=== PATIENT | female | born 1970 | race Caucasian/White ===

== ENCOUNTER 2017-07-31 14:28 | Inpatient (IN) | payer OTHER ==
[2017-07-31 16:36] VITALS: BMI 21.2
--- NOTE | 2017-07-31 17:20 | HP ---
CIWA Score - CIWA Score Nausea/Vomitin-Mild Nausea/No Vomiting Muscle Tremors: 4-Moderate,w/Arms Extend Anxiety: 4-Mod. Anxious/Guarded Agitation: 4-Moderately Restless Paroxysmal Sweats: 1-Minimal Palms Moist Orientation: 0-Oriented Tacttile Disturbances: 0-None Auditory Disturbances: 0-None Visual Disturbances: 0-None Headache: 0-None Present CIWA-Ar Total Score: 14 Admission ROS [facility] - HPI Chief Complaint: WITHDRAWAL SX Allergies/Adverse Reactions: Allergies Allergy/AdvReac Type Severity Reaction Status Date / Time No Known Allergies Allergy Unverified 01/28/15 12:35 History of Present Illness: 47 YEARS OLD FEMALE WITH LONG HISTORY OF ALCOHOL NICOTINE DEPENDENCE, HISTORY OF BILATERAL BREAST CA, SUGICALLY REMOVED, DENIES MENTAL ILLNESS IS ADMITTED TO DETOX ALCOHOL INTOXICATION TREATED AT [facility] RELEASED TO [facility] FOR ALCOHOL DETOX Exam Limitations: No Limitations - Ebola screening Have you traveled outside of the country in the last 21 days: No Have you had contact with anyone from an Ebola affected area: No Have you been sick,other than usual withdrawal symptoms: No Do you have a fever: No - Review of Systems Constitutional: Changes in sleep, Weight Stable EENT: reports: Blurred Vision (EYE GLASSES) Respiratory: reports: No Symptoms reported Cardiac: reports: No Symptoms Reported GI: reports: Nausea, Poor Fluid Intake, Abdominal cramping : reports: No Symptoms Reported Musculoskeletal: reports: No Symptoms Reported Integumentary: reports: No Symptoms Reported Neuro: reports: Tremors Endocrine: reports: No Symptoms Reported Hematology: reports: No Symptoms Reported Psychiatric: reports: Judgement Intact, Mood/Affect Appropiate, Orientated x3 Other Systems: Reviewed and Negative Patient History - Patient Medical History Hx Anemia: No Hx Asthma: No Hx Chronic Obstructive Pulmonary Disease (COPD): No Hx Cancer: No Hx Cardiac Disorders: No Hx Congestive Heart Failure: No Hx Hypertension: No Hx Hypercholesterolemia: No Hx Pacemaker: No HX Cerebrovascular Accident: No Hx Seizures: No Hx Dementia: No Hx Diabetes: No Hx Gastrointestinal Disorders: No Hx Liver Disease: No Hx Genitourinary Disorders: No Hx Sexually Transmitted Disorders: No Hx Renal Disease (ESRD): No Hx Thyroid Disease: No Hx Human Immunodeficiency Virus (HIV): No Hx Hepatitis C: No Hx Depression: No Hx Suicide Attempt: No Hx Bipolar Disorder: No Hx Schizophrenia: No - Patient Surgical History Past Surgical History: Yes Hx Neurologic Surgery: No Hx Cataract Extraction: No Hx Cardiac Surgery: No Hx Lung Surgery: No Hx Breast Surgery: Yes (2014 RIGHT AXILLARY LYMPH NODE REMOVED) Hx Breast Biopsy: No Hx Abdominal Surgery: No Hx Appendectomy: No Hx Cholecystectomy: No Hx Genitourinary Surgery: No Hx Section: No Hx Orthopedic Surgery: No Hx Hysterectomy: No Anesthesia Reaction: No - PPD History Previous Implant?: Yes Documented Results: Negative w/proof Implanted On Prior [facility] Admission?: No PPD to be Administered?: Yes - Reproductive History Patient is a Female of Child Bearing Age (11 -55 yrs old): Yes Last Menstrual Period: 07/31/15 Patient : No - Smoking Cessation Smoking history: Current every day smoker Have you smoked in the past 12 months: Yes Aproximately how many cigarettes per day: 20 Cigars Per Day: 0 Hx Chewing Tobacco Use: No Initiated information on smoking cessation: Yes 'Breaking Loose' booklet given: 07/31/17 - Substance & Tx. History Hx Alcohol Use: Yes Hx Substance Use: No Substance Use Type: Alcohol Hx Substance Use Treatment: Yes (04/2017 [facility]) - Substances Abused Alcohol Route: Oral Frequency: Daily Amount used: PINT WINE Age of first use: 14 Date of Last Use: 07/30/17 Family Disease History - Family Disease History Family Disease History: Heart Disease: Father ([place]), Mother Admission Physical Exam [facility] - Vital Signs Vital Signs: Vital Signs - 24 hr 07/31/17 16:30 Temperature 98.1 F Pulse Rate 102 H Respiratory 20 Rate Blood Pressure 116/75 - Physical General Appearance: Yes: Appropriately Dressed, Mild Distress, Tremorous, Irritable, Sweating, Anxious HEENTM: Yes: Hearing grossly Normal, Normal ENT Inspection, Normocephalic, Normal Voice Respiratory: Yes: Chest Non-Tender, No Respiratory Distress, No Accessory Muscle Use, Hyperresonant (LEFT LOWER) Neck: Yes: Supple, Trachea in good position Breast: Yes: Surgical Scar (BILATERALLY RIGHT AXILLARY) Cardiology: Yes: Regular Rhythm, S1, S2, Tachycardia Abdominal: Yes: Normal Bowel Sounds, Non Tender, Soft Genitourinary: Yes: Within Normal Limits Back: Yes: Normal Inspection Musculoskeletal: Yes: full range of Motion, Gait Steady Extremities: Yes: Normal Inspection, Normal Range of Motion, Non-Tender, Tremors Neurological: Yes: Fully Oriented, Alert, Motor Strength 5/5, Normal Mood/Affect , Normal Response Integumentary: Yes: Warm Lymphatic: Yes: Within Normal Limits - Diagnostic (1) Alcohol dependence with uncomplicated withdrawal Current Visit: Yes Status: Acute (2) Nicotine dependence Current Visit: Yes Status: Acute Qualifiers: Nicotine product type: cigarettes Substance use status: in withdrawal Qualified Code(s): F17.213 - Nicotine dependence, cigarettes, with withdrawal; F17.213 - Nicotine dependence, cigarettes, with withdrawal (3) Carcinoma of both breasts Current Visit: Yes Status: Resolved Qualifiers: Breast location: overlapping sites of breast Estrogen receptor status: unspecified Patient sex: female Qualified Code(s): C50.811 - Malignant neoplasm of overlapping sites of right female breast; C50.811 - Malignant neoplasm of overlapping sites of right female breast; C50.811 - Malignant neoplasm of overlapping sites of right female breast; C50.811 - Malignant neoplasm of overlapping sites of right female breast; C50.812 - Malignant neoplasm of overlapping sites of left female breast; C50.812 - Malignant neoplasm of overlapping sites of left female breast; C50.812 - Malignant neoplasm of overlapping sites of left female breast; C50.812 - Malignant neoplasm of overlapping sites of left female breast Comment: RECONSTRUCTION BILATERALLY 2014 (4) 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
[2017-07-31] MEDS ORDERED: guaiFENesin/D-METHORPHAN HB 10 ML UNIT-DOSE CUPS PO PRN (17:33)
[2017-07-31] MEDS ORDERED: ACETAMINOPHEN 325 MG TABLET (FP) PO PRN (17:33)
[2017-07-31] MEDS ORDERED: MENTHOL/PHENOL 1 EACH UD MM PRN (17:33)
[2017-07-31] MEDS ORDERED: MAG HYDROX/AL HYDROX/SIMETH 30 ML UNIT-DOSE CUP PO PRN (17:33)
[2017-07-31] MEDS ORDERED: MAGNESIUM CITRATE 300 ML BOTTLE PO PRN (17:33)
[2017-07-31] MEDS ORDERED: LOPERAMIDE HCL 2 MG CAPSULE PO PRN (17:33)
[2017-07-31] MEDS ORDERED: MAGNESIUM HYDROX 2400MG/30ML ORAL SUSPENSION 30 ML CUP PO PRN (17:33)
[2017-07-31] MEDS ORDERED: IBUPROFEN 400 MG TABLET (FP) PO PRN (17:33)
[2017-07-31] MEDS ORDERED: chlordiazePOXIDE HCL 25 MG CAPSULE PO ONE (17:33)
[2017-07-31] MEDS ORDERED: diphenhydrAMINE HCL 50 MG CAPSULE PO PRN (17:33)
[2017-07-31] MEDS ORDERED: NICOTINE POLACRILEX 4 MG GUM BC PRN (17:33)
[2017-07-31] MEDS ORDERED: chlordiazePOXIDE HCL 25 MG CAPSULE PO PRN (17:33)
[2017-07-31] MEDS ORDERED: P-EPHED 60MG/TRIPROLIDI 2.5MG TABLET PO PRN (17:33)
[2017-07-31] MEDS: THIAMINE HCL 100 MG TABLET (FP) PO SCH (22:29)
[2017-07-31] MEDS: chlordiazePOXIDE HCL 25 MG CAPSULE PO SCH (22:30)
[2017-07-31] MEDS: hydrOXYzine PAMOATE 50 MG CAPSULE (FP) PO PRN (22:31)
[2017-07-31] MEDS: GABAPENTIN 400 MG CAPSULE (FP) PO SCH (23:10)
[2017-07-31 23:26] LABS: URINE APPEARANCE SLCLOUDY; URINE BILIRUBIN NEGATIVE (NEGATIVE); URINE BLOOD NEGATIVE (NEGATIVE); URINE COLOR YELLOW; URINE GLUCOSE (UA) NEGATIVE (NEGATIVE); URINE KETONE NEGATIVE (NEGATIVE); URINE NITRITE NEGATIVE (NEGATIVE); URINE PROTEIN NEGATIVE (NEGATIVE)
[2017-08-01] MEDS: chlordiazePOXIDE HCL 25 MG CAPSULE PO SCH ×4 (05:15→22:13)
[2017-08-01] MEDS: GABAPENTIN 400 MG CAPSULE (FP) PO SCH ×3 (05:18→22:13)
--- NOTE | 2017-08-01 10:27 | PN ---
S CIWA - CIWA Score Nausea/Vomitin Muscle Tremors: 3 Anxiety: 3 Agitation: 2 Paroxysmal Sweats: 1-Minimal Palms Moist Orientation: 0-Oriented Tacttile Disturbances: 1-Very Mild Itch/Numbness Auditory Disturbances: 1-Very Mild Visual Disturbances: 1-Very Mild Sensitivity Headache: 2-Mild CIWA-Ar Total Score: 17 BHS Progress Note (SOAP) Subjective: alert,irritable,anxious,interrupted sleep,tremor,saab in the body Objective: 08/01/17 10:25 Vital Signs Temperature 96.9 F L 08/01/17 09:52 Pulse Rate 94 H 08/01/17 09:52 Respiratory Rate 18 08/01/17 09:52 Blood Pressure 107/80 08/01/17 09:52 O2 Sat by Pulse Oximetry (%) ekg nsr Laboratory Last Values Urine Color Yellow 07/31/17 23:10 Urine Appearance Slcloudy 07/31/17 23:10 Urine pH 7.0 (5.0-8.0) 07/31/17 23:10 Urine Protein Negative (NEGATIVE) 07/31/17 23:10 Urine Glucose (UA) Negative (NEGATIVE) 07/31/17 23:10 Urine Ketones Negative (NEGATIVE) 07/31/17 23:10 Urine Blood Negative (NEGATIVE) 07/31/17 23:10 Urine Nitrite Negative (NEGATIVE) 07/31/17 23:10 Urine Bilirubin Negative (NEGATIVE) 07/31/17 23:10 Urine Urobilinogen 2.0 mg/dL (0.2-1.0) H 07/31/17 23:10 labs pending Assessment: 08/01/17 10:26 withdrawal symptom Plan: continue detox
[2017-08-01] MEDS: NICOTINE 21 MG/24 HOURS TOPICAL PATCH TD SCH (10:36)
[2017-08-01] MEDS: PRENATAL VITAMINS W/ FOLIC ACID TABLET (FP) PO SCH (10:36)
[2017-08-01] MEDS: hydrOXYzine PAMOATE 50 MG CAPSULE (FP) PO PRN ×3 (10:42→19:44)
[2017-08-01 10:53] LABS: MCH 31.8 pg (25.7-33.7); MCHC 33.8 g/dl (32.0-36.0); MEAN CELL VOLUME 93.9 fl (80-96); MEAN PLT VOLUME 8.3 fl (7.5-11.1); PLATELET COUNT 138 K/MM3 (134-434); RDW 12.7 % (11.6-15.6); WHITE BLOOD COUNT 4.6 K/mm3 (4.0-10.0)
[2017-08-01 11:04] LABS: ALBUMIN 3.4 g/dl (3.4-5.0); ALK PHOS 46 U/L (45-117); ANION GAP 6 (8-16); BILIRUBIN,TOTAL 1.1 mg/dL (0.2-1.0); CALCIUM 8.9 mg/dL (8.5-10.1); CO2 25 mmol/L (21-32); CREATININE 0.6 mg/dL (0.55-1.02); GLUCOSE,RANDOM 86 mg/dL (74-106); SGOT/AST 27 U/L (15-37); SGPT/ALT 19 U/L (12-78); TOT PROT 5.8 g/dl (6.4-8.2)
[2017-08-01 11:29] LABS: URINE LEUK ESTERASE Negative (NEGATIVE)
--- NOTE | 2017-08-01 13:07 | EKG ---
Test Reason : Blood Pressure : / mmHG Vent. Rate : 077 BPM Atrial Rate : 077 BPM P-R Int : 142 ms QRS Dur : 088 ms QT Int : 408 ms P-R-T Axes : 063 060 052 degrees QTc Int : 461 ms NORMAL SINUS RHYTHM NORMAL ECG NO PREVIOUS ECGS AVAILABLE Confirmed by BRICE CHATMAN MD ([id number]) on 08/01/2017 1:06:43 PM Referred By: Confirmed By:BRICE CHATMAN MD
[2017-08-01] MEDS: TAMOXIFEN CITRATE 10 MG TABLET PO SCH (15:06)
[2017-08-01] MEDS: THIAMINE HCL 100 MG TABLET (FP) PO SCH (22:13)
[2017-08-02] MEDS: GABAPENTIN 400 MG CAPSULE (FP) PO SCH ×3 (05:22→22:28)
[2017-08-02] MEDS: chlordiazePOXIDE HCL 25 MG CAPSULE PO SCH ×3 (05:22→17:32)
[2017-08-02] MEDS: hydrOXYzine PAMOATE 50 MG CAPSULE (FP) PO PRN ×5 (05:25→22:29)
--- NOTE | 2017-08-02 09:34 | PN ---
S CIWA - CIWA Score Nausea/Vomitin Muscle Tremors: 3 Anxiety: 3 Agitation: 2 Paroxysmal Sweats: 1-Minimal Palms Moist Orientation: 0-Oriented Tacttile Disturbances: 1-Very Mild Itch/Numbness Auditory Disturbances: 1-Very Mild Visual Disturbances: 0-None Headache: 2-Mild CIWA-Ar Total Score: 16 BHS Progress Note (SOAP) Subjective: alert,irritable,anxious,interrupted sleep,tremor Objective: 08/02/17 09:33 Vital Signs Temperature 98 F 08/02/17 06:30 Pulse Rate 74 08/02/17 06:30 Respiratory Rate 18 08/02/17 06:30 Blood Pressure 94/57 08/02/17 06:30 O2 Sat by Pulse Oximetry (%) Laboratory Last Values WBC 4.6 K/mm3 (4.0-10.0) 08/01/17 07:00 RBC 3.91 M/mm3 (3.60-5.2) 08/01/17 07:00 Hgb 12.4 GM/dL (10.7-15.3) 08/01/17 07:00 Hct 36.7 % (32.4-45.2) 08/01/17 07:00 MCV 93.9 fl (80-96) 08/01/17 07:00 MCH 31.8 pg (25.7-33.7) 08/01/17 07:00 MCHC 33.8 g/dl (32.0-36.0) 08/01/17 07:00 RDW 12.7 % (11.6-15.6) 08/01/17 07:00 Plt Count 138 K/MM3 (134-434) 08/01/17 07:00 MPV 8.3 fl (7.5-11.1) 08/01/17 07:00 Sodium 141 mmol/L (136-145) 08/01/17 07:00 Potassium 4.0 mmol/L (3.5-5.1) 08/01/17 07:00 Chloride 110 mmol/L (98-107) H 08/01/17 07:00 Carbon Dioxide 25 mmol/L (21-32) 08/01/17 07:00 Anion Gap 6 (8-16) L 08/01/17 07:00 BUN 5 mg/dL (7-18) L 08/01/17 07:00 Creatinine 0.6 mg/dL (0.55-1.02) 08/01/17 07:00 Creat Clearance w eGFR > 60 (>60) 08/01/17 07:00 Random Glucose 86 mg/dL (74-106) 08/01/17 07:00 Calcium 8.9 mg/dL (8.5-10.1) 08/01/17 07:00 Total Bilirubin 1.1 mg/dL (0.2-1.0) H 08/01/17 07:00 AST 27 U/L (15-37) 08/01/17 07:00 ALT 19 U/L (12-78) 08/01/17 07:00 Alkaline Phosphatase 46 U/L (45-117) 08/01/17 07:00 Total Protein 5.8 g/dl (6.4-8.2) L 08/01/17 07:00 Albumin 3.4 g/dl (3.4-5.0) 08/01/17 07:00 Urine Color Yellow 07/31/17 23:10 Urine Appearance Slcloudy 07/31/17 23:10 Urine pH 7.0 (5.0-8.0) 07/31/17 23:10 Ur Specific [place] 1.015 (1.005-1.025) 07/31/17 23:10 Urine Protein Negative (NEGATIVE) 07/31/17 23:10 Urine Glucose (UA) Negative (NEGATIVE) 07/31/17 23:10 Urine Ketones Negative (NEGATIVE) 07/31/17 23:10 Urine Blood Negative (NEGATIVE) 07/31/17 23:10 Urine Nitrite Negative (NEGATIVE) 07/31/17 23:10 Urine Bilirubin Negative (NEGATIVE) 07/31/17 23:10 Urine Urobilinogen 2.0 mg/dL (0.2-1.0) H 07/31/17 23:10 Ur Leukocyte Esterase Negative (NEGATIVE) 07/31/17 23:10 RPR Titer Nonreactive (NONREACTIVE) 08/01/17 07:00 Assessment: 08/02/17 09:34 withdrawal symptom Plan: continue detox
[2017-08-02] MEDS: PRENATAL VITAMINS W/ FOLIC ACID TABLET (FP) PO SCH (10:34)
[2017-08-02] MEDS: TAMOXIFEN CITRATE 10 MG TABLET PO SCH (10:34)
[2017-08-02] MEDS: NICOTINE 21 MG/24 HOURS TOPICAL PATCH TD SCH (10:35)
--- NOTE | 2017-08-02 18:50 | PN ---
BHS Progress Note Note: received pharmacist called that the patient was taking lexapro at home psychiatric consultation continue detox
[2017-08-02] MEDS: chlordiazePOXIDE 5 MG CAPSULE PO SCH (22:27)
[2017-08-02] MEDS: THIAMINE HCL 100 MG TABLET (FP) PO SCH (22:28)
[2017-08-03] MEDS: chlordiazePOXIDE 5 MG CAPSULE PO SCH ×3 (05:34→17:36)
[2017-08-03] MEDS: GABAPENTIN 400 MG CAPSULE (FP) PO SCH ×3 (05:35→22:30)
[2017-08-03] MEDS: hydrOXYzine PAMOATE 50 MG CAPSULE (FP) PO PRN ×5 (05:37→23:19)
[2017-08-03] MEDS: TAMOXIFEN CITRATE 10 MG TABLET PO SCH (10:56)
[2017-08-03] MEDS: NICOTINE 21 MG/24 HOURS TOPICAL PATCH TD SCH (10:56)
[2017-08-03] MEDS: PRENATAL VITAMINS W/ FOLIC ACID TABLET (FP) PO SCH (10:56)
--- NOTE | 2017-08-03 11:44 | PN ---
BHS Progress Note (SOAP) Subjective: anxious, poor sleep, irritable Objective: 08/03/17 11:43 Vital Signs - 24 hr 08/02/17 08/02/17 08/02/17 14:05 18:06 23:47 Temperature 99.4 F 98.1 F 98.4 F Pulse Rate 113 H 92 H 89 Respiratory 18 20 18 Rate Blood Pressure 110/60 104/65 114/80 08/03/17 08/03/17 08/03/17 00:30 03:30 06:31 Temperature 97.6 F Pulse Rate 80 Respiratory 18 18 16 Rate Blood Pressure 91/63 08/03/17 11:08 Temperature 96.4 F L Pulse Rate 110 H Respiratory 16 Rate Blood Pressure 99/70 Laboratory Tests 07/31/17 08/01/17 08/01/17 23:10 07:00 07:00 WBC 4.6 RBC 3.91 Hgb 12.4 Hct 36.7 MCV 93.9 MCH 31.8 MCHC 33.8 RDW 12.7 Plt Count 138 MPV 8.3 Sodium 141 Potassium 4.0 Chloride 110 H Carbon Dioxide 25 Anion Gap 6 L BUN 5 L Creatinine 0.6 Creat Clearance w eGFR > 60 Random Glucose 86 Calcium 8.9 Total Bilirubin 1.1 H AST 27 ALT 19 Alkaline Phosphatase 46 Total Protein 5.8 L Albumin 3.4 Urine Color Yellow Urine Appearance Slcloudy Urine pH 7.0 Ur Specific [place] 1.015 Urine Protein Negative Urine Glucose (UA) Negative Urine Ketones Negative Urine Blood Negative Urine Nitrite Negative Urine Bilirubin Negative Urine Urobilinogen 2.0 H Ur Leukocyte Esterase Negative RPR Titer 08/01/17 07:00 WBC RBC Hgb Hct MCV MCH MCHC RDW Plt Count MPV Sodium Potassium Chloride Carbon Dioxide Anion Gap BUN Creatinine Creat Clearance w eGFR Random Glucose Calcium Total Bilirubin AST ALT Alkaline Phosphatase Total Protein Albumin Urine Color Urine Appearance Urine pH Ur Specific [place] Urine Protein Urine Glucose (UA) Urine Ketones Urine Blood Urine Nitrite Urine Bilirubin Urine Urobilinogen Ur Leukocyte Esterase RPR Titer Nonreactive Assessment: 08/03/17 11:44 withdrawal Plan: cont detox protocol
--- NOTE | 2017-08-03 14:20 | CONSULT ---
[facility] Psychiatric Consult - Data Date of interview: 08/03/17 Admission source: [facility] Identifying data: Readmission to [facility] for this 47 y/o female seeking detox treatment on for alcohol dependence.Patient is single without children,domiciled and self-employed. Substance Abuse History: Confirmed by the patient in this interview. Smoking history: Current every day smoker. Have you smoked in the past 12 months: Yes. Aproximately how many cigarettes per day: 20. Cigars Per Day: 0. Hx Chewing Tobacco Use: No. Initiated information on smoking cessation: Yes. 'Breaking Loose' booklet given: 07/31/17. - Substance & Tx. History. Hx Alcohol Use: Yes. Hx Substance Use: No. Substance Use Type: Alcohol. Hx Substance Use Treatment: Yes (04/2017 [facility]). - Substances Abused. Alcohol. Route: Oral. Frequency: Daily. Amount used: PINT WINE. Age of first use: 14. Date of Last Use: 07/30/17 Medical History: Remarkable for a history of bilateral mastectomy (breast cancer ). Psychiatric History: No history of psychiatric hospitalizations.Diagnosed with MDD and Anxiety Disorder.Ms Chisholm sees a private psychiatrist in the community.Managed with lexapro 10 mg/day.Patient endorses adherence to medications.No reported history of suicide attempts. Physical/Sexual Abuse/Trauma History: No history of abuse.Stressor : breast cancer survivor. Additional Comment: Urine Drug Screen Results: BZO-Benzodiazepines.Noted. Mental Status Exam - Mental Status Exam Alert and Oriented to: Time, Place, Person Cognitive Function: Good Patient Appearance: Well Groomed Mood: Hopeful, Euthymic Affect: Appropriate, Normal Range Patient Behavior: Appropriate (well-mannered), Cooperative Speech Pattern: Clear, Appropriate (articulate historian) Voice Loudness: Normal Thought Process: Intact, Goal Oriented Thought Disorder: Not Present Hallucinations: Denies Suicidal Ideation: Denies Homicidal Ideation: Denies Insight/Judgement: Fair Sleep: Well Appetite: Good Muscle strength/Tone: Normal Gait/Station: Normal Psychiatric Findings - Problem List ([place] 1, 2,3) (1) Alcohol dependence with uncomplicated withdrawal Current Visit: Yes Status: Acute (2) Nicotine dependence Current Visit: Yes Status: Acute Qualifiers: Nicotine product type: cigarettes Substance use status: in withdrawal Qualified Code(s): F17.213 - Nicotine dependence, cigarettes, with withdrawal; F17.213 - Nicotine dependence, cigarettes, with withdrawal (3) Alcohol-induced mood disorder Current Visit: Yes Status: Suspected (4) Depressive disorder Current Visit: Yes Status: Chronic Comment: History.On medication. 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
[2017-08-03] MEDS ORDERED: ESCITALOPRAM OXALATE 10 MG TABLET (FP) PO SCH (14:30)
[2017-08-03] MEDS: THIAMINE HCL 100 MG TABLET (FP) PO SCH (22:30)
[2017-08-03] MEDS: chlordiazePOXIDE HCL 10 MG CAPSULE PO SCH (22:30)
[2017-08-04] MEDS: GABAPENTIN 400 MG CAPSULE (FP) PO SCH (06:35)
[2017-08-04] MEDS: chlordiazePOXIDE HCL 10 MG CAPSULE PO SCH (06:36)
[2017-08-04] MEDS: hydrOXYzine PAMOATE 50 MG CAPSULE (FP) PO PRN (06:41)
[2017-08-04 06:52] VITALS: BP 96/65; PULSE 74; TEMP 97.7
--- NOTE | 2017-08-04 09:49 | DS ---
[facility] Detox Discharge Summary Admission Date: 07/31/17 Discharge Date: 08/04/17 - History Present History: Alcohol Dependence Pertinent Past History: Bilateral Breast Cancer - Physical Exam Results Vital Signs: Vital Signs Temperature 97.7 F 08/04/17 06:00 Pulse Rate 74 08/04/17 06:00 Respiratory Rate 16 08/04/17 06:00 Blood Pressure 96/65 08/04/17 06:00 O2 Sat by Pulse Oximetry (%) Pertinent Admission Physical Exam Findings: Withdrawal sx. Laboratory Last Values WBC 4.6 K/mm3 (4.0-10.0) 08/01/17 07:00 RBC 3.91 M/mm3 (3.60-5.2) 08/01/17 07:00 Hgb 12.4 GM/dL (10.7-15.3) 08/01/17 07:00 Hct 36.7 % (32.4-45.2) 08/01/17 07:00 MCV 93.9 fl (80-96) 08/01/17 07:00 MCH 31.8 pg (25.7-33.7) 08/01/17 07:00 MCHC 33.8 g/dl (32.0-36.0) 08/01/17 07:00 RDW 12.7 % (11.6-15.6) 08/01/17 07:00 Plt Count 138 K/MM3 (134-434) 08/01/17 07:00 MPV 8.3 fl (7.5-11.1) 08/01/17 07:00 Sodium 141 mmol/L (136-145) 08/01/17 07:00 Potassium 4.0 mmol/L (3.5-5.1) 08/01/17 07:00 Chloride 110 mmol/L (98-107) H 08/01/17 07:00 Carbon Dioxide 25 mmol/L (21-32) 08/01/17 07:00 Anion Gap 6 (8-16) L 08/01/17 07:00 BUN 5 mg/dL (7-18) L 08/01/17 07:00 Creatinine 0.6 mg/dL (0.55-1.02) 08/01/17 07:00 Creat Clearance w eGFR > 60 (>60) 08/01/17 07:00 Random Glucose 86 mg/dL (74-106) 08/01/17 07:00 Calcium 8.9 mg/dL (8.5-10.1) 08/01/17 07:00 Total Bilirubin 1.1 mg/dL (0.2-1.0) H 08/01/17 07:00 AST 27 U/L (15-37) 08/01/17 07:00 ALT 19 U/L (12-78) 08/01/17 07:00 Alkaline Phosphatase 46 U/L (45-117) 08/01/17 07:00 Total Protein 5.8 g/dl (6.4-8.2) L 08/01/17 07:00 Albumin 3.4 g/dl (3.4-5.0) 08/01/17 07:00 Urine Color Yellow 07/31/17 23:10 Urine Appearance Slcloudy 07/31/17 23:10 Urine pH 7.0 (5.0-8.0) 07/31/17 23:10 Ur Specific [place] 1.015 (1.005-1.025) 07/31/17 23:10 Urine Protein Negative (NEGATIVE) 07/31/17 23:10 Urine Glucose (UA) Negative (NEGATIVE) 07/31/17 23:10 Urine Ketones Negative (NEGATIVE) 07/31/17 23:10 Urine Blood Negative (NEGATIVE) 07/31/17 23:10 Urine Nitrite Negative (NEGATIVE) 07/31/17 23:10 Urine Bilirubin Negative (NEGATIVE) 07/31/17 23:10 Urine Urobilinogen 2.0 mg/dL (0.2-1.0) H 07/31/17 23:10 Ur Leukocyte Esterase Negative (NEGATIVE) 07/31/17 23:10 RPR Titer Nonreactive (NONREACTIVE) 08/01/17 07:00 labs noted - Treatment Hospital Course: Detox Protocol Followed, Detoxed Safely, Responded well, Discharged Condition Good, Rehab Referral Accepted Patient has Accepted a Rehab Referral to: [facility] - Medication Discharge Medications: Ambulatory Orders Acamprosate Calcium [Campral -] 333 mg PO TID 07/31/17 Escitalopram Oxalate [Lexapro -] 10 mg PO DAILY 07/31/17 Gabapentin [Neurontin -] 300 mg PO Q8H 07/31/17 Hydroxyzine Pamoate [Vistaril -] 25 mg PO BID PRN 07/31/17 Tamoxifen Citrate 10 mg PO DAILY 07/31/17 - Diagnosis (1) Alcohol dependence with uncomplicated withdrawal Current Visit: Yes Status: Acute (2) Nicotine dependence Current Visit: Yes Status: Acute Qualifiers: Nicotine product type: cigarettes Substance use status: in withdrawal Qualified Code(s): F17.213 - Nicotine dependence, cigarettes, with withdrawal; F17.213 - Nicotine dependence, cigarettes, with withdrawal (3) Depressive disorder Current Visit: Yes Status: Chronic (4) Alcohol-induced mood disorder Current Visit: Yes Status: Suspected (5) Carcinoma of both breasts Current Visit: Yes Status: Resolved Qualifiers: Breast location: overlapping sites of breast Estrogen receptor status: unspecified Patient sex: female Qualified Code(s): C50.811 - Malignant neoplasm of overlapping sites of right female breast; C50.811 - Malignant neoplasm of overlapping sites of right female breast; C50.811 - Malignant neoplasm of overlapping sites of right female breast; C50.811 - Malignant neoplasm of overlapping sites of right female breast; C50.812 - Malignant neoplasm of overlapping sites of left female breast; C50.812 - Malignant neoplasm of overlapping sites of left female breast; C50.812 - Malignant neoplasm of overlapping sites of left female breast; C50.812 - Malignant neoplasm of overlapping sites of left female breast; Z17.0 - Estrogen receptor positive status [ER+]; Z17.0 - Estrogen receptor positive status [ER+] - AMA Did Patient Leave Against Medical Advice: No
== END 2017-08-04 09:25 | disposition home or self-care (01) | DRG 897 ==
LOC: YASAS 14:28 → Y6N 20:04
PROVIDERS: ADMIT Internal Medicine; ATTEND Internal Medicine
PROC: HZ2ZZZZ Detoxification Services for Substance Abuse Treatment (ICD-10-PCS; principal; 2017-07-31)
DX: F10.24 Alcohol dependence with alcohol-induced mood disorder (principal); F17.213 Nicotine dependence, cigarettes, with withdrawal; F32.9 Major depressive disorder, single episode, unspecified; R00.0 Tachycardia, unspecified; Z85.3 Personal history of malignant neoplasm of breast; Z85.858 Personal history of malignant neoplasm of other endocrine glands; Z17.0 Estrogen receptor positive status [ER+]; Z90.13 Acquired absence of bilateral breasts and nipples
CPT/HCPCS: 36415; 80053; 81003; 85027; 86593; 93005; 93010

== ENCOUNTER 2019-06-15 23:47 | Inpatient (IN) | payer OTHER ==
--- NOTE | 2019-06-16 00:25 | HP ---
CIWA Score Nausea/Vomitin Muscle Tremors: 4-Moderate,w/Arms Extend Anxiety: 4-Mod. Anxious/Guarded Agitation: 4-Moderately Restless Paroxysmal Sweats: 3 Orientation: 0-Oriented Tacttile Disturbances: 0-None Auditory Disturbances: 0-None Visual Disturbances: 0-None Headache: 3-Moderate CIWA-Ar Total Score: 21 - Admission Criteria OASAS Guidelines: Admission for Medically Managed Detox: Requires at least one of the followin. CIWA greater than 12 2. Seizures within the past 24 hours 3. Delirium tremens within the past 24 hours 4. Hallucinations within the past 24 hours 5. Acute intervention needed for co occurring medical disorder 6. Acute intervention needed for co occurring psychiatric disorder 7. Severe withdrawal that cannot be handled at a lower level of care (continued vomiting, continued diarrhea, abnormal vital signs) requiring intravenous medication and/or fluids 8. Patient presents the following: CIWA greater than 12 Admission Criteria Met: Admission criteria met Admission ROS S - [facility] Chief Complaint: c/o withdrawal sx's Allergies/Adverse Reactions: Allergies Allergy/AdvReac Type Severity Reaction Status Date / Time adhesive tape Allergy Itching Verified 06/16/19 00:05 No Known Drug Allergies Allergy Verified 06/16/19 00:05 History of Present Illness: 49 y.o. female with alcoholism here for detox. client is self referred after presenting at [facility] for stabilization due to withdrawal sx's. she reports she was given librium and then dc. She states she has been drinking alcohol since dc and is seeking detox as she cant stop drinking. she reports that she was clean for the past 5 months before relapsing 5 day ago. 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 Denies hx/o seizures, + blackouts most recent 2 days ago. Denies dt's, si/hi, avh. domiciled, employed, denies legals. Exam Limitations: Intoxication (but is a/ox 3) - Ebola screening Have you traveled outside of the country in the last 21 days: No (N) Have you had contact with anyone from an Ebola affected area: No Do you have a fever: No - Review of Systems Constitutional: Chills, Loss of Appetite, Night Sweats, Changes in sleep EENT: reports: No Symptoms Reported Respiratory: reports: No Symptoms reported Cardiac: reports: Palpitations : reports: No Symptoms Reported Musculoskeletal: reports: Joint Stiffness (chronic) Integumentary: reports: Flushing Neuro: reports: Headache, Tremors (r/t withdrawal) Endocrine: reports: No Symptoms Reported Hematology: reports: No Symptoms Reported Psychiatric: reports: Orientated x3, Anxious, Depressed (denies si) Other Systems: Reviewed and Negative Patient History - Patient Medical History Hx Anemia: No Hx Asthma: No Hx Chronic Obstructive Pulmonary Disease (COPD): No Hx Cancer: Yes (of both breast with double mastectomy with r arm lymph node removal) Hx Cardiac Disorders: No Hx Congestive Heart Failure: No Hx Hypertension: No Hx Hypercholesterolemia: No Hx Pacemaker: No HX Cerebrovascular Accident: No Hx Seizures: No Hx Dementia: No Hx Diabetes: No Hx Gastrointestinal Disorders: No Hx Liver Disease: No Hx Genitourinary Disorders: No Hx Sexually Transmitted Disorders: No Hx Renal Disease (ESRD): No Hx Thyroid Disease: No Hx Human Immunodeficiency Virus (HIV): No Hx Hepatitis C: No Hx Depression: Yes (no med,did not want to see psychiatrist) Hx Suicide Attempt: No Hx Bipolar Disorder: No Hx Schizophrenia: No Other Medical History: denies - Patient Surgical History Past Surgical History: Yes Hx Neurologic Surgery: No Hx Cataract Extraction: No Hx Cardiac Surgery: No Hx Lung Surgery: No Hx Breast Surgery: Yes (2014 RIGHT AXILLARY LYMPH NODE REMOVED) Hx Breast Biopsy: No Hx Abdominal Surgery: No Hx Appendectomy: No Hx Cholecystectomy: No Hx Genitourinary Surgery: No Hx Section: No Hx Orthopedic Surgery: No Hx Hysterectomy: No Other Surgical History: double mastectomy in 2014 Anesthesia Reaction: No - PPD History Previous Implant?: Yes Documented Results: Negative w/proof Implanted On Prior [facility] Admission?: Yes Date: 08/02/17 Results: 0 mm PPD to be Administered?: Yes - Reproductive History Patient is a Female of Child Bearing Age (11 -55 yrs old): Yes Last Menstrual Period: 04/06/18 LMP comment: menapause Patient : No (neg [facility] - Smoking Cessation Smoking history: Current every day smoker Have you smoked in the past 12 months: Yes Aproximately how many cigarettes per day: 20 Cigars Per Day: 0 Hx Chewing Tobacco Use: No Initiated information on smoking cessation: Yes 'Breaking Loose' booklet given: 06/16/19 - Substance & Tx. History Hx Alcohol Use: Yes Hx Substance Use: Yes Substance Use Type: Alcohol Hx Substance Use Treatment: Yes ([facility]) - Substances abused Alcohol Substance route: Oral Frequency: Daily Amount used: 2 BOTTLES OF RED WINE Age of first use: 13 Date of last use: 06/15/19 Family Disease History - Family Disease History Family Disease History: Heart Disease: Father ([facility]), Mother Admission Physical Exam [facility] - Vital Signs Vital Signs: Vital Signs - 24 hr 06/15/19 23:55 Temperature 98.6 F Pulse Rate 111 H Respiratory 18 Rate Blood Pressure 123/91 - Physical General Appearance: Yes: Moderate Distress, Alcohol on Breath, Intoxicated ( clinically stable), Tremorous (felt), Anxious HEENTM: Yes: EOMI, Normocephalic, Normal Voice, ALBERTO, Pharynx Normal, Other ( dry mucucs memebranes discolored teeth) Respiratory: Yes: Chest Non-Tender, Lungs Clear, Normal Breath Sounds, No Respiratory Distress, No Accessory Muscle Use Neck: Yes: No masses,lesions,Nodules, Supple, Trachea in good position Breast: Yes: Surgical Scar Cardiology: Yes: Regular Rhythm, S1, S2, Tachycardia Abdominal: Yes: Non Tender, Soft, Increased Bowel Sounds Genitourinary: Yes: Within Normal Limits Back: Yes: Normal Inspection Musculoskeletal: Yes: full range of Motion, Gait Steady Extremities: Yes: Normal Capillary Refill, Normal Range of Motion, Non-Tender, Tremors (felt) Neurological: Yes: Fully Oriented, Alert, Motor Strength 5/5, Depressed Affect ( denies si/hi) Integumentary: Yes: Dry, Warm, Other (flushed face) Lymphatic: Yes: Within Normal Limits - Diagnostic (1) Alcohol dependence with uncomplicated withdrawal Status: Acute (2) Nicotine dependence Status: Chronic Qualifiers: Nicotine product type: cigarettes Substance use status: uncomplicated Qualified Code(s): F17.210 - Nicotine dependence, cigarettes, uncomplicated (3) Depressive disorder Status: Chronic (4) Alcohol-induced mood disorder Status: Suspected (5) S/P bilateral mastectomy Status: Chronic (6) At risk for dehydration due to poor fluid intake Status: Acute Cleared for Admission [facility] - Detox or Rehab [facility] Level of Care: Medically Managed Detox Regimen/Protocol: Librium Claeared for Rehab Admission: No
[2019-06-16] MEDS ORDERED: chlordiazePOXIDE HCL 25 MG CAPSULE PO PRN (00:31)
[2019-06-16] MEDS ORDERED: IBUPROFEN 400 MG TABLET (FP) PO PRN (00:31)
[2019-06-16] MEDS ORDERED: MAGNESIUM HYDROX 2400MG/30ML ORAL SUSPENSION 30 ML CUP PO PRN (00:31)
[2019-06-16] MEDS ORDERED: MENTHOL/PHENOL 1 EACH UD MM PRN (00:31)
[2019-06-16] MEDS ORDERED: P-EPHED 60MG/TRIPROLIDI 2.5MG TABLET PO PRN (00:31)
[2019-06-16] MEDS ORDERED: MAGNESIUM CITRATE 300 ML BOTTLE PO PRN (00:31)
[2019-06-16] MEDS ORDERED: ACETAMINOPHEN 325 MG TABLET (FP) PO PRN ×2 (00:31)
[2019-06-16] MEDS ORDERED: MAG HYDROX/AL HYDROX/SIMETH 30 ML UNIT-DOSE CUP PO PRN (00:31)
[2019-06-16] MEDS ORDERED: hydrOXYzine PAMOATE 25 MG CAPSULE (FP) PO PRN (00:31)
[2019-06-16] MEDS ORDERED: chlordiazePOXIDE HCL 25 MG CAPSULE PO ONE (00:31)
[2019-06-16] MEDS ORDERED: BISMUTH SUBSALICYLATE 524 MG/30 ML UD PO PRN (00:31)
[2019-06-16] MEDS ORDERED: DICYCLOMINE HCL 10 MG CAPSULE PO PRN (00:31)
[2019-06-16] MEDS ORDERED: NICOTINE POLACRILEX 2 MG GUM BUC PRN (00:31)
[2019-06-16] MEDS ORDERED: METHOCARBAMOL 500 MG TABLET PO PRN (00:31)
[2019-06-16] MEDS ORDERED: guaiFENesin 200 MG/10 ML 10 ML UNIT-DOSE CUPS PO PRN (00:31)
[2019-06-16] MEDS ORDERED: ONDANSETRON *ODT* 4 MG TABLET SL PRN (00:31)
[2019-06-16] MEDS: MELATONIN 5 MG TABLETS PO PRN ×2 (01:09→22:01)
[2019-06-16] MEDS: chlordiazePOXIDE HCL 25 MG CAPSULE PO SCH ×4 (05:26→22:01)
[2019-06-16] MEDS: PRENATAL VITAMINS W/ FOLIC ACID TABLET (FP) PO SCH (10:00)
[2019-06-16] MEDS: NICOTINE 21 MG/24 HOURS TOPICAL PATCH TD SCH (10:02)
[2019-06-16 10:31] LABS: PH,URINE 6.5 (5.0-8.0); URINE APPEARANCE CLEAR; URINE BILIRUBIN NEGATIVE (NEGATIVE); URINE COLOR YELLOW; URINE GLUCOSE (UA) NEGATIVE (NEGATIVE); URINE KETONE NEGATIVE (NEGATIVE); URINE LEUK ESTERASE NEGATIVE (NEGATIVE); URINE NITRITE NEGATIVE (NEGATIVE); URINE PROTEIN NEGATIVE (NEGATIVE); URINE UROBILINOGEN 0.2 mg/dL (0.2-1.0)
[2019-06-16] MEDS: TAMOXIFEN CITRATE 10 MG TABLET PO SCH (11:38)
--- NOTE | 2019-06-16 12:48 | EKG ---
Test Reason : Blood Pressure : / mmHG Vent. Rate : 094 BPM Atrial Rate : 094 BPM P-R Int : 128 ms QRS Dur : 082 ms QT Int : 378 ms P-R-T Axes : 000 105 068 degrees QTc Int : 472 ms NORMAL SINUS RHYTHM LATERAL INFARCT , AGE UNDETERMINED ABNORMAL ECG WHEN COMPARED WITH ECG OF 09-APR-2018 15:44, LATERAL INFARCT IS NOW PRESENT Confirmed by Babatunde Lamar MD ([id number]) on 06/16/2019 12:48:39 PM Referred By: ISABELLE Confirmed By:Babatunde Lamar MD
--- NOTE | 2019-06-16 13:18 | CONSULT ---
[facility] Psychiatric Consult - Data Date of interview: 06/16/19 Admission source: [facility] Identifying data: Patient is approached at bedside for the requested psychiatric evaluation. She declines. " I told them downstairs that I was not interested in seeing a psychiatrist. I have no issue to address with psychiatrists. I feel fine." Evaluation is waived by patient. Nursing staff is made aware.
--- NOTE | 2019-06-16 14:09 | PN ---
[facility] CIWA - CIWA Score Nausea/Vomitin-Mild Nausea/No Vomiting Muscle Tremors: 4-Moderate,w/Arms Extend Anxiety: 3 Agitation: 4-Moderately Restless Paroxysmal Sweats: 2 Orientation: 3-Disoriented Date>2 days Tacttile Disturbances: 2-Mild Itch/Numbness/Burn Auditory Disturbances: 0-None Visual Disturbances: 0-None Headache: 0-None Present CIWA-Ar Total Score: 19 [facility] Progress Note (SOAP) Subjective: 49 years old female 3rd patient [facility] admission since 2017 was admitted on 06/16/19 for acute alcohol withdrawal sx management doing well with librium detox regimen less tremor resting on bed feeling tired low energy limited conversation with staff ate breakfast and lunch ambulating to bathroom slowly but steady gait Objective: 06/16/19 14:15 Vital Signs Temperature 98.9 F 06/16/19 13:16 Pulse Rate 111 H 06/16/19 13:16 Respiratory Rate 18 06/16/19 13:16 Blood Pressure 121/92 06/16/19 13:16 O2 Sat by Pulse Oximetry (%) Laboratory Last Values Urine Color Yellow 06/16/19 07:00 Urine Appearance Clear 06/16/19 07:00 Urine pH 6.5 (5.0-8.0) 06/16/19 07:00 Ur Specific [place] 1.008 (1.010-1.035) L 06/16/19 07:00 Urine Protein Negative (NEGATIVE) 06/16/19 07:00 Urine Glucose (UA) Negative (NEGATIVE) 06/16/19 07:00 Urine Ketones Negative (NEGATIVE) 06/16/19 07:00 Urine Blood Negative (NEGATIVE) 06/16/19 07:00 Urine Nitrite Negative (NEGATIVE) 06/16/19 07:00 Urine Bilirubin Negative (NEGATIVE) 06/16/19 07:00 Urine Urobilinogen 0.2 mg/dL (0.2-1.0) 06/16/19 07:00 Ur Leukocyte Esterase Negative (NEGATIVE) 06/16/19 07:00 POC Urine HCG, Qual Negative 06/16/19 00:29 lab noted admission lab ordered for 06/17/19 Assessment: 06/16/19 14:15 alcohol withdrawal sx alert response to verbal command eye open Plan: continue librum detox regimen
[2019-06-16] MEDS ORDERED: THIAMINE HCL 100 MG TABLET (FP) PO SCH (22:00)
[2019-06-17] MEDS: chlordiazePOXIDE HCL 25 MG CAPSULE PO SCH ×2 (05:33→10:04)
--- NOTE | 2019-06-17 09:28 | PN ---
S CIWA - CIWA Score Nausea/Vomitin-Mild Nausea/No Vomiting Muscle Tremors: 4-Moderate,w/Arms Extend Anxiety: 3 Agitation: 2 Paroxysmal Sweats: 2 Orientation: 0-Oriented Tacttile Disturbances: 1-Very Mild Itch/Numbness Auditory Disturbances: 0-None Visual Disturbances: 0-None Headache: 1-Very Mild CIWA-Ar Total Score: 14 [facility] Progress Note (SOAP) Subjective: doing well with libriium detox regimen less anxious declined psychiatric evaluation mild sad affect in comparison to yesterday optimistic about aftercare upon discharged from detox father is in AA will pick her up and attend AA regularly feeling "much better" appeared well-rested Objective: 06/17/19 09:28 Vital Signs Temperature 98.8 F 06/17/19 09:02 Pulse Rate 88 06/17/19 09:02 Respiratory Rate 18 06/17/19 09:02 Blood Pressure 108/76 06/17/19 09:02 O2 Sat by Pulse Oximetry (%) Laboratory Last Values Urine Color Yellow 06/16/19 07:00 Urine Appearance Clear 06/16/19 07:00 Urine pH 6.5 (5.0-8.0) 06/16/19 07:00 Ur Specific [place] 1.008 (1.010-1.035) L 06/16/19 07:00 Urine Protein Negative (NEGATIVE) 06/16/19 07:00 Urine Glucose (UA) Negative (NEGATIVE) 06/16/19 07:00 Urine Ketones Negative (NEGATIVE) 06/16/19 07:00 Urine Blood Negative (NEGATIVE) 06/16/19 07:00 Urine Nitrite Negative (NEGATIVE) 06/16/19 07:00 Urine Bilirubin Negative (NEGATIVE) 06/16/19 07:00 Urine Urobilinogen 0.2 mg/dL (0.2-1.0) 06/16/19 07:00 Ur Leukocyte Esterase Negative (NEGATIVE) 06/16/19 07:00 POC Urine HCG, Qual Negative 06/16/19 00:29 lab noted Assessment: 06/17/19 09:29 alcohol withdrawal sx alert oriented x 3 in good spirit Plan: continue librium detox regimen
[2019-06-17] MEDS: TAMOXIFEN CITRATE 10 MG TABLET PO SCH (10:04)
[2019-06-17] MEDS: PRENATAL VITAMINS W/ FOLIC ACID TABLET (FP) PO SCH (10:04)
[2019-06-17] MEDS: NICOTINE 21 MG/24 HOURS TOPICAL PATCH TD SCH (10:05)
[2019-06-17 12:19] LABS: ALBUMIN 3.5 g/dl (3.4-5.0); BILIRUBIN,TOTAL 0.7 mg/dL (0.2-1); BLOOD UREA NITROGEN 5.8 mg/dL (7-18); CALCIUM 9.2 mg/dL (8.5-10.1); CREATININE 0.4 mg/dL (0.55-1.3); POTASSIUM 3.4 mmol/L (3.5-5.1); TOT PROT 6.2 g/dl (6.4-8.2)
[2019-06-17 12:22] LABS: HEMATOCRIT 40.1 % (32.4-45.2); HEMOGLOBIN 13.5 GM/dL (10.7-15.3); MCH 33.4 pg (25.7-33.7); MCHC 33.6 g/dl (32.0-36.0); MEAN CELL VOLUME 99.5 fl (80-96); MEAN PLT VOLUME 8.8 fl (7.5-11.1); PLATELET COUNT 139 K/MM3 (134-434); RBC 4.03 M/mm3 (3.60-5.2); WHITE BLOOD COUNT 3.2 K/mm3 (4.0-10.0)
[2019-06-17 13:27] VITALS: BP 126/89; PULSE 115; TEMP 97.4
--- NOTE | 2019-06-17 14:53 | DS ---
[facility] Detox Discharge Summary Admission Date: 06/16/19 Discharge Date: 06/17/19 - History Present History: Alcohol Dependence - Physical Exam Results Vital Signs: Vital Signs Temperature 97.4 F L 06/17/19 13:27 Pulse Rate 115 H 06/17/19 13:27 Respiratory Rate 18 06/17/19 13:27 Blood Pressure 126/89 06/17/19 13:27 O2 Sat by Pulse Oximetry (%) - Treatment Hospital Course: Detox Protocol Followed, Detoxed Safely, Responded well, Discharged Condition Good, Rehab Referral Accepted - Medication Discharge Medications: Ambulatory Orders Tamoxifen Citrate 10 mg PO DAILY #30 tablet 04/13/18 - AMA Did Patient Leave Against Medical Advice: No CIWA Score - CIWA Score Nausea/Vomitin-Mild Nausea/No Vomiting Muscle Tremors: 3 Anxiety: 2 Agitation: 1-Slight > Activity Paroxysmal Sweats: 2 Orientation: 0-Oriented Tacttile Disturbances: 1-Very Mild Itch/Numbness Auditory Disturbances: 0-None Visual Disturbances: 0-None Headache: 1-Very Mild CIWA-Ar Total Score: 11
[2019-06-18] MEDS ORDERED: chlordiazePOXIDE HCL 10 MG CAPSULE PO PRN
[2019-06-18] MEDS ORDERED: chlordiazePOXIDE HCL 10 MG CAPSULE PO SCH (05:00)
[2019-06-19] MEDS ORDERED: chlordiazePOXIDE HCL 10 MG CAPSULE PO SCH (05:00)
[2019-06-20] MEDS ORDERED: chlordiazePOXIDE HCL 10 MG CAPSULE PO ONE (05:00)
== END 2019-06-17 14:15 | disposition home or self-care (01) | DRG 897 ==
LOC: YASAS 23:47 → Y3N 06-16 00:29
PROVIDERS: ADMIT Surgery; ATTEND Surgery
PROC: HZ2ZZZZ Detoxification Services for Substance Abuse Treatment (ICD-10-PCS; principal; 2019-06-16)
DX: F10.230 Alcohol dependence with withdrawal, uncomplicated (principal); F17.210 Nicotine dependence, cigarettes, uncomplicated; F10.24 Alcohol dependence with alcohol-induced mood disorder; F32.9 Major depressive disorder, single episode, unspecified; Z85.3 Personal history of malignant neoplasm of breast; Z90.13 Acquired absence of bilateral breasts and nipples; Z91.89 Other specified personal risk factors, not elsewhere classified
CPT/HCPCS: 36415; 80053; 81003; 81025; 85027; 86480; 86593; 93005; 93010

== ENCOUNTER 2023-05-26 16:25 | Inpatient (IN) | payer OTHER ==
[2023-05-26 17:21] VITALS: BMI 21.6
[2023-05-27] MEDS ORDERED: NALOXONE HCL 0.4 MG/ML VIAL IM PRN (00:15)
[2023-05-27] MEDS ORDERED: MAGNESIUM HYDROX 2400MG/30ML ORAL SUSPENSION 30 ML CUP PO PRN (00:15)
[2023-05-27] MEDS ORDERED: LOPERAMIDE HCL 2 MG CAPSULE PO PRN (00:15)
[2023-05-27] MEDS ORDERED: BENZOCAINE/MENTHOL (CHLORASEPTIC ) LOZENGE MM PRN (00:15)
[2023-05-27] MEDS ORDERED: NALOXONE HCL (KLOXXADO) 8 MG SPRAY NS PRN (00:15)
[2023-05-27] MEDS ORDERED: MAG HYDROX/AL HYDROX/SIMETH 30 ML UNIT-DOSE CUP PO PRN (00:15)
[2023-05-27] MEDS ORDERED: NICOTINE POLACRILEX 2 MG GUM BUC PRN (00:15)
[2023-05-27] MEDS ORDERED: IBUPROFEN 400 MG TABLET (FP) PO PRN (00:15)
[2023-05-27] MEDS ORDERED: ACETAMINOPHEN 325 MG TABLET (FP) PO PRN (00:15)
[2023-05-27] MEDS ORDERED: BENZONATATE 200 MG CAPSULE PO PRN (00:15)
[2023-05-27] MEDS ORDERED: POLYETHYLENE GLYCOL (HEALTHYLAX) 3350 17 GM PACKET PO PRN (00:15)
[2023-05-27] MEDS ORDERED: BISMUTH SUBSALICYLATE 524 MG/30 ML PO PRN (00:15)
[2023-05-27] MEDS ORDERED: guaiFENesin 600 MG TABLET.ER (FP) PO PRN (00:15)
[2023-05-27] MEDS ORDERED: IBUPROFEN 600 MG TABLET (FP) PO PRN (00:15)
[2023-05-27] MEDS ORDERED: ONDANSETRON *ODT* 4 MG TABLET SL PRN (00:15)
[2023-05-27] MEDS: chlordiazePOXIDE HCL 25 MG CAPSULE PO PRN ×2 (01:29→19:21)
[2023-05-27] MEDS: chlordiazePOXIDE HCL 25 MG CAPSULE PO SCH ×4 (05:42→22:15)
[2023-05-27] MEDS: PRENATAL VITAMINS W/ FOLIC ACID TABLET (FP) PO SCH (10:14)
[2023-05-27] MEDS: NICOTINE 14 MG/24 HOURS TOPICAL PATCH TD SCH (10:16)
[2023-05-27] MEDS ORDERED: hydrOXYzine PAMOATE 25 MG CAPSULE (FP) PO ONE (12:15)
[2023-05-27] MEDS ORDERED: TAMOXIFEN CITRATE 10 MG TABLET PO SCH (12:30)
[2023-05-27] MEDS ORDERED: TAMOXIFEN CITRATE 10 MG TABLET PO ONE (17:45)
[2023-05-27] MEDS: hydrOXYzine PAMOATE 25 MG CAPSULE (FP) PO PRN (19:02)
[2023-05-27] MEDS ORDERED: MELATONIN 5 MG TABLETS PO SCH (22:00)
[2023-05-27] MEDS: THIAMINE HCL 100 MG TABLET (FP) PO SCH (22:15)
[2023-05-28] MEDS: chlordiazePOXIDE HCL 25 MG CAPSULE PO SCH ×2 (05:42→10:25)
[2023-05-28] MEDS: hydrOXYzine PAMOATE 25 MG CAPSULE (FP) PO PRN ×4 (05:45→22:11)
[2023-05-28 10:14] LABS: HEMATOCRIT 39.5 % (32.4-45.2); HEMOGLOBIN 13.5 GM/dL (10.7-15.3); MCH 31.3 pg (25.7-33.7); MEAN CELL VOLUME 92.1 fl (80-96); MEAN PLT VOLUME 7.9 fl (7.5-11.1); PLATELET COUNT 109 10^3/uL (134-434); RBC 4.29 M/mm3 (3.60-5.2); RDW 13.2 % (11.6-15.6); WHITE BLOOD COUNT 4.5 K/mm3 (4.0-10.0)
[2023-05-28] MEDS: CITALOPRAM HYDROBROMIDE 10 MG TABLET PO SCH (10:23)
[2023-05-28] MEDS: PRENATAL VITAMINS W/ FOLIC ACID TABLET (FP) PO SCH (10:23)
[2023-05-28] MEDS: TAMOXIFEN CITRATE 10 MG TABLET PO SCH (10:24)
[2023-05-28] MEDS: NICOTINE 14 MG/24 HOURS TOPICAL PATCH TD SCH (10:27)
[2023-05-28 10:32] LABS: POTASSIUM 3.4 mmol/L (3.5-5.1)
[2023-05-28 10:40] LABS: CALCIUM 9.4 mg/dL (8.5-10.1)
[2023-05-28 10:41] LABS: ALBUMIN 4.5 g/dl (3.4-5.0); BLOOD UREA NITROGEN 3.9 mg/dL (7-18)
[2023-05-28 10:44] LABS: CREATININE 0.6 mg/dL (0.55-1.3)
[2023-05-28 10:45] LABS: BILIRUBIN,TOTAL 0.6 mg/dL (0.2-1); TOT PROT 7.4 g/dl (6.4-8.2)
[2023-05-28] MEDS ORDERED: LORazepam 0.5 MG TABLET PO PRN (11:25)
[2023-05-28] MEDS ORDERED: POTASSIUM CHLORIDE ORAL LIQUID 20 MEQ/15 ML PO SCH (11:30)
[2023-05-28] MEDS: LORazepam 0.5 MG TABLET PO SCH ×2 (16:55→22:14)
[2023-05-28] MEDS: THIAMINE HCL 100 MG TABLET (FP) PO SCH (22:11)
[2023-05-28] MEDS: POTASSIUM CHLORIDE ORAL LIQUID 20 MEQ/15 ML PO SCH (22:11)
[2023-05-28] MEDS: MELATONIN 5 MG TABLETS PO SCH (22:11)
[2023-05-29] MEDS ORDERED: chlordiazePOXIDE HCL 10 MG CAPSULE PO PRN
[2023-05-29] MEDS ORDERED: chlordiazePOXIDE HCL 10 MG CAPSULE PO SCH (05:00)
[2023-05-29] MEDS: LORazepam 0.5 MG TABLET PO SCH ×3 (05:51→22:09)
[2023-05-29] MEDS: hydrOXYzine PAMOATE 25 MG CAPSULE (FP) PO PRN ×4 (05:53→22:09)
[2023-05-29 06:45] VITALS: RESP 18
[2023-05-29] MEDS: CITALOPRAM HYDROBROMIDE 10 MG TABLET PO SCH (09:25)
[2023-05-29] MEDS: TAMOXIFEN CITRATE 10 MG TABLET PO SCH (09:26)
[2023-05-29] MEDS: PRENATAL VITAMINS W/ FOLIC ACID TABLET (FP) PO SCH (09:26)
[2023-05-29] MEDS: POTASSIUM CHLORIDE ORAL LIQUID 20 MEQ/15 ML PO SCH (09:26)
[2023-05-29] MEDS: NICOTINE 14 MG/24 HOURS TOPICAL PATCH TD SCH (09:28)
[2023-05-29] MEDS ORDERED: IBUPROFEN 400 MG TABLET (FP) PO ONE (10:37)
[2023-05-29] MEDS: MELATONIN 5 MG TABLETS PO SCH (22:09)
[2023-05-29] MEDS: THIAMINE HCL 100 MG TABLET (FP) PO SCH (22:09)
[2023-05-30] MEDS ORDERED: chlordiazePOXIDE HCL 10 MG CAPSULE PO SCH (05:00)
[2023-05-30] MEDS: hydrOXYzine PAMOATE 25 MG CAPSULE (FP) PO PRN (05:45)
[2023-05-30] MEDS ORDERED: LORazepam 0.5 MG TABLET PO SCH ×2 (06:00)
[2023-05-30] MEDS: TAMOXIFEN CITRATE 10 MG TABLET PO SCH (09:14)
[2023-05-30] MEDS: PRENATAL VITAMINS W/ FOLIC ACID TABLET (FP) PO SCH (09:14)
[2023-05-30] MEDS: NICOTINE 14 MG/24 HOURS TOPICAL PATCH TD SCH (09:19)
[2023-05-30 09:54] VITALS: BP 114/78; PULSE 95; TEMP 97.3
[2023-05-30] MEDS: CITALOPRAM HYDROBROMIDE 10 MG TABLET PO SCH (10:02)
[2023-05-31] MEDS ORDERED: LORazepam 0.5 MG TABLET PO ONE (05:00)
[2023-05-31] MEDS ORDERED: chlordiazePOXIDE HCL 10 MG CAPSULE PO ONE (05:00)
== END 2023-05-30 09:23 | disposition home or self-care (01) | DRG 897 ==
LOC: YASAS 16:25 → Y6N 05-27 01:38
PROVIDERS: ADMIT Allergy & Immunology; ATTEND Allergy & Immunology
PROC: HZ2ZZZZ Detoxification Services for Substance Abuse Treatment (ICD-10-PCS; principal; 2023-05-27)
DX: F10.230 Alcohol dependence with withdrawal, uncomplicated (principal); F17.213 Nicotine dependence, cigarettes, with withdrawal; F10.282 Alcohol dependence with alcohol-induced sleep disorder; F10.280 Alcohol dependence with alcohol-induced anxiety disorder; F32.A Depression, unspecified; E87.6 Hypokalemia; R63.8 Other symptoms and signs concerning food and fluid intake; R63.4 Abnormal weight loss; Z68.21 Body mass index [BMI] 21.0-21.9, adult; Z85.3 Personal history of malignant neoplasm of breast; Z90.13 Acquired absence of bilateral breasts and nipples
CPT/HCPCS: 36415; 80053; 85027; 86780; 87635; 87811; 93005; 93010